=== PATIENT | female | born 1955 | race Caucasian/White ===

== ENCOUNTER → 2019-12-05 | Outpatient (CLI) | payer OTHER ==
[2019-12-05 07:46] LABS: PLATELET COUNT 244 x10^3mcL (130-400)
[2019-12-05 08:14] LABS: T3 TOTAL 1.38 ng/mL
[2019-12-05 08:27] LABS: ALKALINE PHOSPHATASE 108 U/L (46-116); ALT/SGPT 47 U/L (14-59); AST/SGOT 32 U/L (15-37); BILIRUBIN TOTAL 0.54 mg/dL (0.20-1.00); CARBON DIOXIDE 25.9 mmol/L (21-32); CHLORIDE SERUM 105 mmol/L (98-107); CHOLESTEROL 175 mg/dL (<200); CHOLESTEROL/HDL RATIO 3.2; CREATININE SERUM 0.6 mg/dL (0.6-1.0); GFR1 > 60 mL/min; GLUCOSE SERUM 91 mg/dL (74-106); HDL CHOLESTEROL 54 mg/dL (40-60); POTASSIUM SERUM 3.8 mmol/L (3.5-5.1); SODIUM SERUM 142 mmol/L (136-145); TOTAL PROTEIN, SERUM 7.9 g/dL (6.4-8.2)
[2019-12-05 08:34] LABS: TRIGLYCERIDES 216 mg/dL (<150)
[2019-12-05 08:36] LABS: FREE T4 0.98 ng/dL (0.76-1.46); FREE THYROXINE INDEX 2.6 ug/dL (1.4-4.5); T4(THYROXINE) 7.5 ug/dL (4.7-13.3)
== END | disposition home or self-care (01) ==
LOC: RD 06:55
PROVIDERS: ATTEND Orthopaedic Surgery
DX: M54.5 Low back pain (principal); I10 Essential (primary) hypertension; R73.9 Hyperglycemia, unspecified
CPT/HCPCS: 84439

== ENCOUNTER → 2020-01-03 | Outpatient (CLI) | payer OTHER | END | disposition home or self-care (01) | LOC: MA 12-06 14:30 | PROC: BH02ZZZ Plain Radiography of Bilateral Breasts (ICD-10-PCS; principal; 2020-01-03) | DX: Z12.31 Encounter for screening mammogram for malignant neoplasm of breast (principal) | CPT/HCPCS: 77067 ==